=== PATIENT | male | born 1970 | race Caucasian/White ===

== ENCOUNTER → 2020-04-07 | Day surgery (SDC) | payer OTHER ==
[~2020-04-07] VITALS: Ht 172.7 cm; Wt 90.7 kg
[~2020-04-07] MED LIST: PROTONIX40 MG PO
[2020-04-07 08:00] VITALS: BP 129/80
[2020-04-07 09:22] VITALS: BP 114/66
[2020-04-07 09:37] VITALS: BP 105/72
[2020-04-07 09:52] VITALS: BP 106/63
== END | disposition home or self-care (01) ==
LOC: SDC 04-04 09:30
DX: K92.1 Melena (principal); D12.0 Benign neoplasm of cecum; D12.8 Benign neoplasm of rectum; K64.8 Other hemorrhoids; K57.30 Diverticulosis of large intestine without perforation or abscess without bleeding; E11.9 Type 2 diabetes mellitus without complications; K21.0 Gastro-esophageal reflux disease with esophagitis; Z79.899 Other long term (current) drug therapy; Z98.890 Other specified postprocedural states